=== PATIENT | female | born 1945 | race Caucasian/White ===

== ENCOUNTER → 2016-10-07 | Outpatient (CLI) | payer MEDICARE ==
[~2016-10-07] MED LIST: AMLODIPINE5 M1 PO; ASPI-COR81 M1 PO; BUDESONIDE3 MG PO; COREG6.25 MG PO; CRESTOR20 MG PO; ENTOCORT EC3 M1 PO; EVISTA60 MG PO; FUROSEMIDE80 M1 PO; HYDROCODONE-APA1 TA1 PO; HYDROCODONE1 TABLET PO; IBUPROFEN600 MG PO; KEFLEX 500MG.500 MG PO; LASIX 40MG. TAB40 MG PO; LEXAPRO 10 MG T10 MG PO; MAXZIDE 25 MG-31 TAB PO; MULTI VITAMINS1 TA1 PO; NAPROSYN500 M1 PO; POTASSIUM GLUC550 M1 PO; SEPTRA DS 800 M1 TAB PO; SPIRONOLACTONE25 M1 PO; VITAMIN B121000 MC2 SL
--- NOTE | 2016-10-08 06:25 | RADIOLOGY REPORT PS360 ---
MRI-T-SPINE W/O HISTORY: Mid back pain and left lower back pain radiating anteriorly with history of compression fracture COMPRESSION FX OF BODY OF THROACIC VERTEBRA COMPARISON: 03/26/2016 TECHNIQUE: Standard multiplanar multiecho sequences are performed without contrast. 3-D MIP and myelographic images are also rendered and reviewed FINDINGS: There is a mild upper thoracic scoliosis convex right. Multilevel degenerative disc disease with compression deformities once again noted involving T5 and T12 not significantly changed. No new compression fractures are evident. 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 Tiny central disc protrusion noted at T8 without impingement unchanged. Degenerative disc disease involving all levels of the thoracic spine. Bulging disc is present at T11-T12 with endplate irregularity. Prior vertebroplasty at T12. Bilateral renal cyst with some T2 hypointensity along the posterior aspect of the left renal cyst consistent with some internal debris. IMPRESSION: 1. Overall no change in the appearance of the thoracic spine compared to 03/26/2016. 2. Multilevel degenerative disc disease as detailed above and on the previous study unchanged. 3. Old wedge compressive changes of T5 and T12 with small central disc protrusion at T8-T9 and concentric bulging disc at T11-T12. 4. No change of the benign-appearing T2 hyperintense lesions of T5 and T4.
== END ==
LOC: RAD 13:38
DX: M48.54XA Collapsed vertebra, not elsewhere classified, thoracic region, initial encounter for fracture (principal); M54.14 Radiculopathy, thoracic region